=== PATIENT | male | born 1985 | race Caucasian/White ===

== ENCOUNTER 2016-10-22 01:46 | Inpatient (IN) | payer BC ==
[~2016-10-22] VITALS: Ht 182.9 cm; Wt 78.1 kg
[~2016-10-22 01:46] MED LIST: NOHOMEMEDS; PRILOSEC; PROTONIX40 MG PO; [UNRECOGNIZED DRUG - OTHER] PO
[2016-10-22 02:35] LABS: CHLORIDE 87 mEq/L (99-109); POTASSIUM 4.1 mEq/L (3.7-5.4); SODIUM 133 mEq/L (136-147)
[2016-10-22 02:37] LABS: GLUCOSE 140 mg/dL (70-99)
[2016-10-22 02:38] LABS: ANION GAP 24 MEQ/L (2-14); HEMATOCRIT 53.5 % (38.0-50.0); MCH 29.6 PG (29.0-34.0); MCV 84.8 FL (86-99); MEAN PLAT.VOLUME 9.3 uM^3 (9.0-12.4); PLATELET COUNT 341 K/uL (156-360); RBC DIS.WIDTH-CV 12.6 % (11.8-14.6); RBC DIS.WIDTH-SD 39.1 % (39-53); RED BLOOD COUNT 6.31 M/uL (4.00-5.50); WHITE BLOOD COUNT 17.1 K/uL (4.1-10.2)
[2016-10-22 02:41] LABS: GFR ESTIMATE (CALCULATED) 16 mL/min/
[2016-10-22 02:42] LABS: UREA NITROGEN (BUN) 56 mg/dL (9-23)
[2016-10-22 02:51] LABS: MAGNESIUM 2.9 mg/dL (1.3-2.7)
[2016-10-22 04:21] LABS: CREATINE KINASE 432 IU/L (1-294)
[2016-10-22 06:16] VITALS: BP 156/80
[2016-10-22 07:18] VITALS: BP 152/84
[2016-10-22 10:47] LABS: ANION GAP 10 MEQ/L (2-14); CHLORIDE 95 MEQ/L (99-109); GFR ESTIMATE (CALCULATED) 44 mL/min/; GLUCOSE 109 mg/dL (70-99); POTASSIUM 3.8 MEQ/L (3.7-5.4); SAMPLE HEMOLYSIS CHECK 0; SAMPLE ICTERIC CHECK 0; SAMPLE LIPEMIA CHECK 0; SODIUM 136 MEQ/L (136-147); UREA NITROGEN (BUN) 37 mg/dL (9-23)
[2016-10-22 11:58] VITALS: BP 124/73
[2016-10-22] MEDS ORDERED: ALEVE220 M2 PO (12:09)
[2016-10-22] MEDS ORDERED: PRILOSEC OTC20 MG PO (12:09)
[2016-10-22] MEDS ORDERED: MULTI-DAY VITA1 EACH PO (12:09)
[2016-10-22 15:20] VITALS: BP 130/64
[2016-10-22 20:00] VITALS: BP 135/84
[2016-10-22 23:55] VITALS: BP 114/59
[2016-10-23 03:59] VITALS: BP 121/66
[2016-10-23 06:23] LABS: HEMATOCRIT 43.7 % (38.0-50.0); MCH 29.4 PG (29.0-34.0); MCHC 33.4 G/DL (30.0-36.0); MCV 87.9 FL (86-99); MEAN PLAT.VOLUME 9.5 uM^3 (9.0-12.4); RBC DIS.WIDTH-CV 12.6 % (11.8-14.6); RBC DIS.WIDTH-SD 40.4 % (39-53); WHITE BLOOD COUNT 8.4 K/uL (4.1-10.2)
[2016-10-23 06:31] LABS: ANION GAP 5 MEQ/L (2-14); CHLORIDE 100 MEQ/L (99-109); GFR ESTIMATE (CALCULATED) > 59 mL/min/; GLUCOSE 92 mg/dL (70-99); POTASSIUM 4.3 MEQ/L (3.7-5.4); SAMPLE HEMOLYSIS CHECK 0; SAMPLE ICTERIC CHECK 0; SAMPLE LIPEMIA CHECK 0; SODIUM 136 MEQ/L (136-147); UREA NITROGEN (BUN) 19 mg/dL (9-23)
[2016-10-23 06:39] LABS: PLATELET COUNT 235 K/uL (156-360); RED BLOOD COUNT 4.97 M/uL (4.00-5.50)
[2016-10-23 07:02] LABS: PLAT.SUFFICIENCY ADEQUATE
[2016-10-23 07:15] VITALS: BP 122/73
[2016-10-23 11:40] VITALS: BP 131/83
[2016-10-23] MEDS ORDERED: FOLIC ACID1 MG PO (12:19)
[2016-10-23] MEDS ORDERED: ZOFRAN4 MG PO (12:19)
[2016-10-23] MEDS ORDERED: TYLENOL ARTHRI650 MG PO (12:19)
[2016-10-23] MEDS ORDERED: THERAGRAN1 TABLET PO (12:19)
[2016-10-23] MEDS ORDERED: Thiamine,Vitamin B1 PO (12:19)
[2016-10-23 15:30] VITALS: BP 132/83
== END 2016-10-23 17:46 | disposition home or self-care (01) | DRG 683 ==
LOC: EME 01:46 → EDOF 04:02 → 2EAST 05:50
PROVIDERS: Hospitalist
DX: N17.9 Acute kidney failure, unspecified (principal); E86.0 Dehydration; E87.1 Hypo-osmolality and hyponatremia; E87.2 Acidosis; E83.41 Hypermagnesemia; E83.52 Hypercalcemia; R19.7 Diarrhea, unspecified; R68.83 Chills (without fever); D72.829 Elevated white blood cell count, unspecified; F10.10 Alcohol abuse, uncomplicated; F32.9 Major depressive disorder, single episode, unspecified; F17.200 Nicotine dependence, unspecified, uncomplicated; Z80.0 Family history of malignant neoplasm of digestive organs
CPT/HCPCS: 76770; 80048; 80048 91; 81003; 82550; 82948; 83735; 83930; 83935; 84300; 85027; 99281; 99285; J1644; J2405; J2765; J3411; J7030; J7120; S0028

== ENCOUNTER 2017-09-29 14:44 | Emergency (ER) | payer BC ==
[~2017-09-29] VITALS: Ht 182.9 cm; Wt 83.2 kg
[~2017-09-29 14:44] MED LIST changes: +ALEVE220 M2 PO; +FOLIC ACID1 MG PO; +MULTI-DAY VITA1 EACH PO; +PRILOSEC OTC20 MG PO; +THERAGRAN1 TABLET PO; +TYLENOL ARTHRI650 MG PO; +Thiamine,Vitamin B1 PO; +ZOFRAN4 MG PO
[2017-09-29 15:43] LABS: HEMATOCRIT 40.1 % (38.0-50.0); HEMOGLOBIN 14.2 G/DL (12.5-16.6); MCH 30.7 PG (29.0-34.0); MCHC 35.4 G/DL (30.0-36.0); MCV 86.6 FL (86-99); PLATELET COUNT 226 K/uL (156-360); RBC DIS.WIDTH-CV 12.1 % (11.8-14.6); RBC DIS.WIDTH-SD 38.5 % (39-53); RED BLOOD COUNT 4.63 M/uL (4.00-5.50); WHITE BLOOD COUNT 14.3 K/uL (4.1-10.2)
[2017-09-29 15:51] LABS: ALBUMIN 4.3 g/dL (3.2-4.8); CHLORIDE 102 mEq/L (99-109); SODIUM 137 mEq/L (136-147)
[2017-09-29 15:53] LABS: GLUCOSE 103 mg/dL (70-99)
[2017-09-29 15:57] LABS: ALKALINE PHOSPHATASE 78 IU/L (3-129); CREATININE 0.9 mg/dL (0.6-1.3); GFR ESTIMATE (CALCULATED) > 59 mL/min/ (58.99-99999)
[2017-09-29 15:58] LABS: AST (GOT) 26 IU/L (2-34); UREA NITROGEN (BUN) 15 mg/dL (9-23)
[2017-09-29 16:00] LABS: ALT (GPT) 35 IU/L (3-49)
[2017-09-29 16:33] LABS: APPEARANCE CLEAR ((CLEAR)); BILIRUBIN NEGATIVE; BLOOD NEGATIVE; COLOR YELLOW ((YELLOW)); GLUCOSE (STRIP) NEGATIVE; KETONES 20; LEUKOCYTES NEGATIVE; NITRITE NEGATIVE; PROTEIN (STRIP) NEGATIVE; SPECIFIC GRAVITY 1.019 (1.000-1.030); UCUL ADDED? NO; UROBILINOGEN 0.2 MG/DL (0.2-1.0)
[2017-09-29] MEDS ORDERED: FLAGYL500 MG PO (16:58)
[2017-09-29] MEDS ORDERED: CIPRO500 MG PO (16:58)
[2017-09-29 17:35] VITALS: BP 117/73
== END 2017-09-29 17:37 | disposition home or self-care (01) ==
LOC: EME 14:44
PROVIDERS: Nurse Practitioner Family
DX: K57.32 Diverticulitis of large intestine without perforation or abscess without bleeding (principal); D72.829 Elevated white blood cell count, unspecified; F32.9 Major depressive disorder, single episode, unspecified; F41.9 Anxiety disorder, unspecified; F12.90 Cannabis use, unspecified, uncomplicated; Z87.442 Personal history of urinary calculi; Z87.891 Personal history of nicotine dependence
CPT/HCPCS: 74176; 80053; 81003; 85027; J1885